=== PATIENT | male | born 1970 | race African-American/Black ===

== ENCOUNTER 2020-02-25 12:05 | Emergency (ER) | payer OTHER ==
--- NOTE | 2020-02-25 12:14 | PCM.SN.2 ---
- Free Text/Narrative Note: EKG Time 1207p, Rate 93 NSR no ELVA
[2020-02-25] MEDS ORDERED: Sodium Chloride 0.9% 1,000 ML IV ONE (12:17)
[2020-02-25] MEDS ORDERED: Aspirin 81 MG Tab.Chew PO ONE (12:17)
--- NOTE | 2020-02-25 12:21 | EDM.PDOC ---
ED HPI GENERAL MEDICAL PROBLEM - General Stated Complaint: CHEST PAIN Time Seen by Provider: 02/25/20 12:13 Source of Information: Reports: Patient History Limitations: Reports: No Limitations - History of Present Illness INITIAL COMMENTS - FREE TEXT/NARRATIVE: HISTORY AND PHYSICAL: History of present illness: Patient is a 49-year-old male who presents to the emergency room with complaints of midsternal chest and epigastric pain that occasionally radiates into his left anterior chest wall. He states he has had this pain over the past 3 days which worsens when he is performing physical activity. Reports the pain somewhat improves when he is at rest. Upon arrival his blood pressure is elevated, he states he does have a history of hypertension a few years ago, although states after taking a month of antihypertensive medication he no longer needed it because it was "better". Patient denies any fever, chills, headache, change in vision, syncope or near syncope. Denies any back pain, shortness of breath or cough. Denies any abdominal pain, nausea, vomiting, diarrhea, constipation or dysuria. Has not noted any blood in urine or stool. Patient has been eating and drinking appropriately. Review of systems: As per history of present illness and below otherwise all systems reviewed and negative. Past medical history: As per history of present illness and as reviewed below otherwise non contributory. Surgical history: As per history of present illness and as reviewed below otherwise noncontributory. Social history: See social history for further information Family history: As per history of present illness and as reviewed below otherwise noncontributory. Physical exam: General: Well developed and well nourished. Alert and orientated x 3. Nontoxic in appearance and in no acute distress. Vital signs are stable and have been reviewed by me. Nursing notes were reviewed. HEENT: Atraumatic, normocephalic, pupils equal and reactive bilaterally, negative for conjunctival pallor or scleral icterus, mucous membranes moist, TMs normal bilaterally, throat clear, neck supple, nontender, trachea midline. No drooling or trismus noted. No meningeal signs. No hot potato voice noted. Lungs: Clear to auscultation, breath sounds equal bilaterally, mild midsternal/epigastric tenderness with palpation. Normal work of breathing, no accessory muscles used. Heart: S1S2, regular rate and rhythm without overt murmur Abdomen: Soft, nondistended, nontender. Negative for masses or hepatosplenomegaly. Negative for costovertebral tenderness. Skin: Intact, warm, dry. No lesions or rashes noted. Hematologic: No petechiae or purpra. Mucosa appropriate color and normal nail bed color and refill. Extremities: Atraumatic, moves all extremities per self without difficulty or deficits, negative for cords or calf pain. Neurovascular unremarkable. Neuro: Awake, alert, oriented. Cranial nerves II through XII unremarkable. Cerebellum unremarkable. Motor and sensory unremarkable throughout. Exam nonfocal. Psychiatric: Mood and affect are appropriate. Normal thought process. Answering questions appropriately. Notes: Patient's blood pressure has improved. Currently pain-free. I did offer admission for observation and further care and management. Patient states he would prefer to be discharged home. We discussed the risks of being discharged without further care and management and he accepts these. Patient was able to pull up a picture of his previous prescription which was lisinopril 10 mg once daily, states he has not taken this medication in almost a year. I will renew this prescription as his blood pressure was elevated. I have talked with the patient about today's findings, in addition to providing specific details for plan of care. Reassessment at the time of disposition demonstrates that the patient is in no acute distress. The patient is stable for discharge, counseling was provided and we discussed in great detail signs and symptoms that would prompt them to return to the Emergency Department. Medication, follow up and supportive care measures were reviewed and discussed. Voices understanding and is agreeable to plan of care. Denies any further questions or concerns at this time. Diagnostics: CBC, CMP, Troponin, EKG, CXR, D.Dimer [employer]: ASA, Nitro Prescription: Lisinopril Impression: Chest pain Hypertension Plan: 1. Today your physical examination and vital signs are stable after some medications were given. Your initial cardiac enzymes were within normal limits, we did encourage admission which she declined. We are always happy to help take care of you, so if you should decide to return we would gladly re-evaluate you. 2. Please take your home medications as directed, Lisinopril to be taken once daily. 3. We encourage you to follow up with your primary care provider and/or recommended specialist in the next few days for re-evaluation and further care/management. If your symptoms should worsen, new symptoms develop or any of the signs and symptoms we discussed should arise please return to the emergency room or call 911 (if needed). Definitive disposition and diagnosis as appropriate pending reevaluation and review of above. chest Pain Score (Numeric/FACES): 5 - Related Data Allergies Allergy/AdvReac Type Severity Reaction Status Date / Time No Known Allergies Allergy Verified 02/25/20 12:21 Home Meds: Home Meds lisinopriL [Lisinopril] 10 mg PO DAILY 30 Days #30 tablet 02/25/20 [Rx] ED ROS GENERAL - Review of Systems Review Of Systems: See Below (See dictation) ED EXAM, GENERAL - Physical Exam Exam: See Below (See dictation) Course - Vital Signs Last Recorded V/S: Last Vital Signs Temp 96.8 F L 02/25/20 12:06 Pulse 78 02/25/20 13:11 Resp 16 02/25/20 13:11 BP 148/91 H 02/25/20 13:11 Pulse Ox 98 02/25/20 13:11 - Orders/Labs/Meds Orders: Active Orders 24 hr Category Date Time Status EKG Documentation Completion [RC] STAT Care 02/25/20 12:11 Active Chest 1V Frontal [CR] Stat Exams 02/25/20 12:11 Taken Sodium Chloride 0.9% [Normal Saline] 1,000 ml Med 02/25/20 12:17 Active IV STAT Medication Orders Sodium Chloride (Normal Saline) 1,000 mls @ 125 mls/hr IV STAT ONE Stop: 02/25/20 20:16 Last Admin: 02/25/20 12:24 Dose: 125 mls/hr Documented by: KARIS Labs: Laboratory Tests 02/25/20 02/25/20 02/25/20 Range/Units 12:17 12:43 12:43 WBC 4.74 (4.0-11.0) K/uL RBC 4.92 (4.50-5.90) M/uL Hgb 14.8 (13.0-17.0) g/dL Hct 43.6 (38.0-50.0) % MCV 88.6 (80.0-98.0) fL MCH 30.1 (27.0-32.0) pg MCHC 33.9 (31.0-37.0) g/dL RDW Std Deviation 43.8 (28.0-62.0) fl RDW Coeff of Ammon 13 (11.0-15.0) % Plt Count 159 (150-400) K/uL MPV 11.50 (7.40-12.00) fL Neut % (Auto) 55.9 (48.0-80.0) % Lymph % (Auto) 36.1 (16.0-40.0) % Woodruff % (Auto) 6.3 (0.0-15.0) % Eos % (Auto) 1.5 (0.0-7.0) % Baso % (Auto) 0.2 (0.0-1.5) % Neut # (Auto) 2.7 (1.4-5.7) K/uL Lymph # (Auto) 1.7 (0.6-2.4) K/uL Woodruff # (Auto) 0.3 (0.0-0.8) K/uL Eos # (Auto) 0.1 (0.0-0.7) K/uL Baso # (Auto) 0.0 (0.0-0.1) K/uL Nucleated RBC % 0.0 /100WBC Nucleated RBCs # 0 K/uL D-Dimer, Quantitative < 0.19 (0.0-0.50) mg/L FEU Sodium 139 (136-148) mmol/L Potassium 3.6 (3.5-5.1) mmol/L Chloride 103 (98-107) mmol/L Carbon Dioxide 27.7 (21.0-32.0) mmol/L BUN 16 (7.0-18.0) mg/dL Creatinine 1.1 (0.8-1.3) mg/dL Est Cr Clr Drug Dosing 68.50 mL/min Estimated GFR (MDRD) > 60.0 ml/min Glucose 99 (74-106) mg/dL Calcium 9.3 (8.5-10.1) mg/dL Total Bilirubin 1.7 H (0.2-1.0) mg/dL AST 38 H (15-37) IU/L ALT 46 (14-63) IU/L Alkaline Phosphatase 87 (46-116) U/L Troponin I < 0.050 (0.000-0.056) ng/mL Total Protein 8.7 H (6.4-8.2) g/dL Albumin 4.5 (3.4-5.0) g/dL Globulin 4.2 H (2.6-4.0) g/dL Albumin/Globulin Ratio 1.1 (0.9-1.6) Meds: Medications Generic Name Dose Route Start Last Admin Trade Name Freq PRN Reason Stop Dose Admin Sodium Chloride 1,000 mls @ 125 mls/hr 02/25/20 12:17 02/25/20 12:24 Normal Saline IV 02/25/20 20:16 125 mls/hr STAT ONE Administration Discontinued Medications Generic Name Dose Route Start Last Admin Trade Name Freq PRN Reason Stop Dose Admin Aspirin 324 mg 02/25/20 12:17 02/25/20 12:25 Aspirin PO 02/25/20 12:18 324 mg ONETIME ONE Administration Al Hydroxide/Mg Hydroxide 15 0 ml 02/25/20 13:20 ml/ Lidocaine HCl 5 ml PO 02/25/20 13:21 ONETIME ONE Nitroglycerin 0.4 mg 02/25/20 12:17 02/25/20 12:47 Nitrostat SL 0.4 mg Q5M PRN Administration Chest Pain Departure - Departure Time of Disposition: 13:31 Disposition: Home, Self-Care 01 Clinical Impression: Chest pain Qualifiers: Chest pain type: unspecified Qualified Code(s): R07.9 - Chest pain, unspecified Hypertension Qualifiers: Hypertension type: unspecified Qualified Code(s): I10 - Essential (primary) hypertension Prescriptions: lisinopriL [Lisinopril] 10 mg PO DAILY 30 Days #30 tablet Instructions: Nonspecific Chest Pain, Adult, [id number], Hypertension, Adult, [id number] Additional Instructions: The following information is given to patients seen in the emergency department who are being discharged to home. This information is to outline your options for follow-up care. We provide all patients seen in our emergency department with a follow-up referral. The need for follow-up, as well as the timing and circumstances, are variable depending upon the specifics of your emergency department visit. If you don't have a primary care physician on staff, we will provide you with a referral. We always advise you to contact your personal physician following an emergency department visit to inform them of the circumstance of the visit and for follow-up with them and/or the need for any referrals to a consulting specialist. The emergency department will also refer you to a specialist when appropriate. This referral assures that you have the opportunity for follow-up care with a specialist. All of these measure are taken in an effort to provide you with optimal care, which includes your follow-up. Under all circumstances we always encourage you to contact your private physician who remains a resource for coordinating your care. When calling for follow-up care, please make the office aware that this follow-up is from your recent emergency room visit. If for any reason you are refused follow-up, please contact the [facility] at and asked to speak to the emergency department charge nurse. [facility] [address] [place] [id number] [address] Thank you for choosing the [facility] emergency department in [place] for your medical needs today. It was a pleasure caring for you. Today you were seen in the emergency department for chest pain and high blood pressu re. 1. Today your physical examination and vital signs are stable after some medications were given. Your initial cardiac enzymes were within normal limits, we did encourage admission which she declined. We are always happy to help take care of you, so if you should decide to return we would gladly re-evaluate you. 2. Please take your home medications as directed, Lisinopril to be taken once d aily. 3. We encourage you to follow up with your primary care provider and/or recommended specialist in the next few days for re-evaluation and further care/management. If your symptoms should worsen, new symptoms develop or any of the signs and symptoms we discussed should arise please return to the emergency room or call 911 (if needed). Sepsis Event Note (ED) - Focused Exam Vital Signs: Vital Signs Temp Pulse Resp BP BP Pulse Ox 02/25/20 13:11 78 16 148/91 H 98 02/25/20 12:47 134/77 02/25/20 12:36 74 137/88 02/25/20 12:27 166/110 H 02/25/20 12:06 96.8 F L 121 H 17 166/110 H 97 - My Orders Last 24 Hours: My Active Orders 02/25/20 12:11 EKG Documentation Completion [RC] STAT Chest 1V Frontal [CR] Stat 02/25/20 12:17 Sodium Chloride 0.9% [Normal Saline] 1,000 ml IV STAT - Assessment/Plan Last 24 Hours: My Active Orders 02/25/20 12:11 EKG Documentation Completion [RC] STAT Chest 1V Frontal [CR] Stat 02/25/20 12:17 Sodium Chloride 0.9% [Normal Saline] 1,000 ml IV STAT
[2020-02-25] MEDS: Nitroglycerin 0.4 MG Tab.SL SL PRN ×3 (12:27→12:47)
[2020-02-25 12:49] LABS: BLOOD UREA NITROGEN,BUN 16 mg/dL (7.0-18.0); CARBON DIOXIDE,CO2 27.7 mmol/L (21.0-32.0); CHLORIDE,CL 103 mmol/L (98-107); GLUCOSE RANDOM 99 mg/dL (74-106); POTASSIUM,K 3.6 mmol/L (3.5-5.1); SODIUM,NA 139 mmol/L (136-148)
[2020-02-25] MEDS ORDERED: Alum Hydrox/Mag Hydrox/Simeth 15 ML, Lidocaine 2% 5 ML PO ONE ×2 (13:20)
--- NOTE | 2020-02-25 13:37 | CR ---
Indication: Chest pain Comparison: None available. Technique: Single AP view chest Findings: There is hyperinflation and chronic interstitial change. There is no focal consolidation, effusion, or pneumothorax. The cardiac silhouette is mildly prominent. The bony thorax is grossly intact. Impression: Hyperinflation and chronic interstitial change without dense consolidation. Dictated by Josue Galeana MD @ Feb 25 2020 1:35PM Signed by Dr. Josue Galeana @ Feb 25 2020 1:36PM
== END 2020-02-25 14:11 | disposition home or self-care (01) ==
LOC: MW.ED 12:05
DX: I10 Essential (primary) hypertension (principal)
CPT/HCPCS: 36415; 71045; 80053; 84484; 85025; 85379; 93005; 99285; A9270; J7030

== ENCOUNTER 2025-01-25 10:31 | Emergency (ER) | payer OTHER, BC | END 2025-01-25 11:48 | disposition home or self-care (01) | LOC: MW.ED 10:31 | DX: S60.222A Contusion of left hand, initial encounter (principal); I10 Essential (primary) hypertension; Z79.899 Other long term (current) drug therapy; V89.2XXA Person injured in unspecified motor-vehicle accident, traffic, initial encounter | CPT/HCPCS: 73130; 99284; A9270; 99283 ==